=== PATIENT | female | born 1995 | race Caucasian/White ===

== ENCOUNTER → 2019-07-26 | Outpatient (CLI) | payer OTHER ==
[~2019-07-26] MED LIST: BUPR300T4 PO; ESCITALOPRAM OX20 MG PO; GADOTERATE 7.5 MMOL/15ML VIAL. IVP ONE; IBUP-1027 PO
--- NOTE | 2019-07-26 14:38 | KCIC ---
BRAIN WO/W CONTRAST History: Elevated prolactin. Technique: Multiplanar, multi sequential pre and postcontrast MR imaging was performed of the brain. Pituitary protocol. Comparison: None Findings: No acute infarct. No intracranial hemorrhage. No mass effect. No hydrocephalus. Extra-axial spaces are unremarkable. No pathologic enhancement. Normal appearance of the pituitary gland. No evidence of mass. Normal posterior pituitary bright spot. Infundibulum is midline. Normal appearance of the cavernous sinuses and optic chiasm. Imaged orbits are unremarkable. Imaged paranasal sinuses and mastoid air cells are clear. Impression: 1. No acute intracranial abnormality. Normal pituitary gland. Electronically signed by: Jaya Aragon DO (07/26/2019 2:35 PM) [id number]
== END | disposition home or self-care (01) ==
LOC: KCIC MRI 10:51
PROVIDERS: ATTEND Family Medicine
DX: E22.1 Hyperprolactinemia (principal)
CPT/HCPCS: 70553; A9575